=== PATIENT | male | born 1980 | race Caucasian/White ===

== ENCOUNTER 2017-06-14 00:12 | Inpatient (IN) | payer OTHER ==
[~2017-06-14] VITALS: Ht 195.6 cm; Wt 107.0 kg
[2017-06-14] VITALS (11 sets, daily range): BP systolic 142–176; BP diastolic 82–110
--- NOTE | ~2017-06-14 | O ---
[facility] [place] [address] OPERATIVE REPORT Name: CEZARNYANOLAN LUU Room #: 411-P [facility] IN M.R.#: [id number] Admission: 06/14/17 Attend Phys: Jerry Goodman MD Discharge: 06/16/17 Date of : 78 Report #: [id number] THIS REPORT FOR: //name// CC: [facility] physician/PCP Jerry Madrid DATE OF SERVICE: 06/14/2017 PREOPERATIVE DIAGNOSIS: Left tibial shaft fracture. POSTOPERATIVE DIAGNOSIS: Left tibial shaft fracture. PROCEDURE: Left tibia intramedullary nail. SURGEON: Ilya Madrid MD. GENERATOR OPERATOR: Veronika Celeste. ANESTHESIA: General. ESTIMATED BLOOD LOSS: 50. DRAINS: No drains. TOURNIQUET TIME: 10 minutes. COMPLICATIONS: No complications. DESCRIPTION OF PROCEDURE: The patient was brought to the operating room where he was placed under general anesthesia. Once under adequate general anesthesia, his left lower extremity was prepped and draped in a sterile manner. The extremity was elevated, exsanguinated, tourniquet placed to 300 mmHg. Utilizing fluoroscopy for guidance, a 4 cm incision overlying the patellar tendon was made. Dissection was carried down to the which was then incised exposing the tendon. This was then swept laterally, and a curved cannulated awl was placed in the anterior tibia. The guidewire for the [employer] intramedullary nail was then passed through the tibial shaft in the fracture site. The tourniquet was then let down at 10 minutes. The tibia was then reamed up to a size 13. A size 12 nail was then placed down the shaft of the tibia. Excellent alignment was achieved in this manner. The tibia was then locked proximally through 2 small stab incisions with 2 transverse locking screws proximally, statically locked and subsequently under fluoroscopic guidance, two separate transverse locking screws through the distal tibia. Once complete, the wounds were irrigated copiously and closed with 2-0 Vicryl in the deep and subcutaneous tissues and rhina were used for the skin. Wounds were dressed with Xeroform, [address] [address] OPERATIVE REPORT Name: CEZARNYANOLAN LUU Room #: 411-P DIS IN M.R.#: [id number] Admission: 06/14/17 Attend Phys: Jerry Goodman MD Discharge: 06/16/17 Date of : 78 Report #: [id number] 4 x 4s, and a sterile soft compressive dressing was placed. Tourniquet was let down at 10 minutes as previously described. The wounds were dressed with Xeroform, 4 x 4s, and sterile soft compressive dressing. There were no complications from the procedure. The patient tolerated the procedure well and went to the recovery room without incident. <ELECTRONICALLY SIGNED> By: Ilya Madrid MD 07/26/17 0740 [id number] Ilya Madrid MD /nya
[2017-06-14 07:37] LABS: HEMATOCRIT 49.3 % (42.0-52.0); HEMOGLOBIN 16.8 gm/dL (14.0-18.0); MCH 31.9 pg (26.0-34.0); MCHC 34.1 g/dL (28.0-37.0); MCV 93.8 fL (80.0-100.0); RBC 5.25 mil/uL (4.50-6.00); RDW 13.7 % (10.5-14.5); WBC 12.8 thou/uL (4.0-11.0)
[2017-06-14 07:42] LABS: CALCIUM 8.4 mg/dL (8.5-10.1); CREATININE 1.1 mg/dL (0.7-1.3); POTASSIUM 4.2 mmol/L (3.5-5.1)
[2017-06-14 07:50] LABS: APTT 27.5 Seconds (24.5-32.8); PROTIME 10.7 Seconds (9.3-11.4)
[2017-06-15 00:12] VITALS: BP 141/81
[2017-06-15 04:00] VITALS: BP 166/91
[2017-06-15 05:31] LABS: HEMATOCRIT 43.3 % (42.0-52.0); HEMOGLOBIN 14.9 gm/dL (14.0-18.0)
[2017-06-15 05:44] LABS: CALCIUM 8.3 mg/dL (8.5-10.1)
[2017-06-15 06:59] VITALS: BP 165/95
[2017-06-15 11:00] VITALS: BP 181/107
[2017-06-15 15:01] VITALS: BP 151/105
[2017-06-15 20:00] VITALS: BP 167/91
[2017-06-16 04:00] VITALS: BP 145/82
[2017-06-16 05:55] LABS: HEMATOCRIT 40.2 % (42.0-52.0); HEMOGLOBIN 13.8 gm/dL (14.0-18.0); MCH 32.1 pg (26.0-34.0); MCHC 34.3 g/dL (28.0-37.0); MCV 93.7 fL (80.0-100.0); RBC 4.3 mil/uL (4.50-6.00); RDW 13.1 % (10.5-14.5); WBC 8.7 thou/uL (4.0-11.0)
[2017-06-16 06:29] LABS: CALCIUM 8.5 mg/dL (8.5-10.1); CREATININE 1.1 mg/dL (0.7-1.3); POTASSIUM 3.8 mmol/L (3.5-5.1)
[2017-06-16 07:19] VITALS: BP 150/84
[2017-06-16 11:09] LABS: URINE AMYLASE-IU/L 131 U/L (Not Estab.)
[2017-06-16] MEDS ORDERED: COLACE100 MG PO (14:05)
[2017-06-16] MEDS ORDERED: ASA5UEC PO (14:05)
[2017-06-16] MEDS ORDERED: MIRALAX17 GM PO (14:05)
[2017-06-16 14:35] VITALS: BP 150/84
== END 2017-06-16 15:20 | disposition home or self-care (01) | DRG 493 ==
LOC: ER 00:12 → EROBS 01:13 → 4N 01:13 → ER 01:13 → 4N 16:07 → ENTRNSPT 06-16 15:08 → 4N 06-16 15:20
PROVIDERS: Emergency Medicine; Internal Medicine; Nurse Practitioner Family; Orthopaedic Surgery Foot and Ankle Surgery
PROC: 0QHH06Z Insertion of Intramedullary Internal Fixation Device into Left Tibia, Open Approach (ICD-10-PCS; principal; 2017-06-14)
PROC: 2W3RX1Z Immobilization of Left Lower Leg using Splint (ICD-10-PCS; 2017-06-14)
DX: S82.302A Unspecified fracture of lower end of left tibia, initial encounter for closed fracture (principal); R65.10 Systemic inflammatory response syndrome (SIRS) of non-infectious origin without acute organ dysfunction; S82.402A Unspecified fracture of shaft of left fibula, initial encounter for closed fracture; S43.005A Unspecified dislocation of left shoulder joint, initial encounter; F17.210 Nicotine dependence, cigarettes, uncomplicated; Z88.1 Allergy status to other antibiotic agents; W01.0XXA Fall on same level from slipping, tripping and stumbling without subsequent striking against object, initial encounter; Y93.89 Activity, other specified; Y92.89 Other specified places as the place of occurrence of the external cause; Y99.8 Other external cause status; Z79.899 Other long term (current) drug therapy
CPT/HCPCS: 10091; 50010; 50101; 50386; 50635; 51412; 55445; 56524; 56526; 57091; 62110; 62900; 70005